=== PATIENT | female | born 2000 | race Caucasian/White ===

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

== ENCOUNTER 2024-12-01 15:42 | Inpatient (IN) ==
[2024-12-01 16:57] LABS: Hematocrit (blood only) 36.9 % (37.0-47.0); Hemoglobin 12.5 g/dl (12.0-16.0); Mean Corpuscular Hemoglobin 28.9 pg (25.0-34.0); Mean Corpuscular Hgb Conc 33.9 g/dL (32.0-36.0); Mean Corpuscular Volume 85.4 fL (80.0-100.0); Mean Platelet Volume 10.9 fL (9.4-12.4); Platelet Count 175 K/uL (130-400); RDW Coefficient of Variation 16.9 % (11.5-14.5); RDW Standard Deviation 52.6 fL (36.4-46.3); Red Blood Count 4.32 M/uL (4.20-5.40); White Blood Count 16.04 K/ul (4.8-10.8)
[2024-12-01] MEDS ORDERED: SODIUM CHLORIDE 0.9% 100 ML IV PRN (17:03)
[2024-12-01] MEDS ORDERED: SODIUM CHLORIDE 0.9% 50 ML IV PRN (17:03)
--- NOTE | 2024-12-01 17:28 | History & Physical Report ---
Date of Service December 01, 2024 Assessment & Plan (1) Encounter for supervision of normal intrauterine in multigravida, antepartum: Plan: Multiparous female who presents in early labor at 40 and 1/7 weeks. Membranes are intact. She would like to ambulate for now until contractions get stronger. She is hoping to have an unmedicated this time if possible. Epidural if she requests it. We will AROM when possible. Anticipate vaginal . Admission and Anticipated Discharge Date Admission Date: December 01, 2024 History of Present Illness Primary Care Provider: Misael Stark DO Patient is a 24-year-old 7 para 2-0-4-2 female EDC of 11/30/2024 who presents with leaking fluid shortly after her exam in the office this morning. Along with the increased discharge, she has had regular contractions which have been getting stronger over the last several hours. complicated by severe anemia requiring IV iron infusions and bipolar disorder. GBS is negative. testing has been reassuring. Allergies Allergy/AdvReac Type Severity Reaction Status Date / Time No Known Allergies Allergy Verified 12/01/24 11:36 Home Medications Medication Instructions Recorded Confirmed Type escitalopram oxalate 10 mg tablet 10 mg PO DAILY 04/07/24 12/01/24 History vit no.95-ferrous 1 tab PO DAILY 04/07/24 12/01/24 History fumarate 28 mg-folic acid 800 mcg tablet () Patient History Medical History Loss of teeth due to extraction POTS (postural orthostatic tachycardia syndrome) Varicella vaccination Intermittent palpitations SOB (shortness of breath) Ovarian cyst Gastritis Dentalgia Patella-femoral syndrome Muscle spasm Constipation Anxiety Migraine Surgical History [place] teeth removed History of removal of ovarian cyst Family History Father Heart disease Mother Thyroid disorder POTS (postural orthostatic tachycardia syndrome) Denies family history of Ovarian cancer Breast cancer Colorectal cancer Social History Smoking Status: Current every day smoker Tobacco Type: Cigarettes Cigarettes Per Day: up to 10 per day; Second Hand Exposure: Yes; Do You Dip or Chew Tobacco: No; Hx Alcohol Use: No Hx Substance Use: No Preferred Language: Angolan marital status: Single marital status details: Maik Lou (24) [phone] Current Living Situation: Family and Significant Other Current Living Situation Comment: Lives with FOB and 2 children- 1 service dog current occupational status: employed current occupation: Self employed/ Independent work How many Children do You have: 2 Feels Safe at Home: Yes Review of Systems All systems reviewed & are unremarkable except as noted in HPI & below Physical Exam Constitutional: WD/WN, vitals as above Psychiatric: A+Ox3, euthymic affect Genitourinary: OB Exam Abdomen: + vertex and + regular contractions (Q5 minutes) Manual OB Exam: + cervical dilation (5cm/60/-2 posterior) and + amniotic fluid (intact) No nitrazine positive or ferning present OB Exam Monitor Tracing: + external FHT monitor used, + external uterine monitor used, + category I and + normal FHT variability Results & Data Vital Signs (Past 12 Hours) Vital Signs Temp Pulse Resp BP 12/01/24 15:59 111 H 111/65 12/01/24 15:52 18 12/01/24 15:52 98.2 F 18 Coding Level of Care Code 87060 INT INP/OBS CARE 1/40MIN Diagnoses Encounter for supervision of normal intrauterine in multigravida, antepartum Z34.80
[2024-12-01] MEDS: ACETAMINOPHEN 500 MG TAB PO PRN (20:15)
[2024-12-01] MEDS ORDERED: fentaNYL citrate PF 100 MCG/2 ML VIAL EPI PRN (21:36)
[2024-12-01] MEDS ORDERED: ePHEDrine sulfate 50 MG/ML AMP IV PRN (21:36)
[2024-12-01] MEDS ORDERED: BUPIVACAINE 0.25% PF 30 ML VIAL EPI PRN (21:36)
[2024-12-01] MEDS ORDERED: SODIUM CHLORIDE 0.9% PF INJ 10 ML VIAL EPI PRN (21:36)
[2024-12-01] MEDS ORDERED: NALOXONE HCL 0.4 MG/1 ML VIAL/CARP IV PRN (21:36)
[2024-12-01] MEDS ORDERED: fentANYL 2 MCG/ML BUPIVacaine 0.125%-NSS 100ML BAG EPI PRN (21:36)
[2024-12-01] MEDS ORDERED: NALBUPHINE HCL INJ 10 MG/ML AMP IV PRN (21:36)
[2024-12-01] MEDS ORDERED: NALOXONE HCL 1 MG in SODIUM CHLORIDE 0.9% 1,000 ML IV PRN (21:36)
[2024-12-01] MEDS ORDERED: diphenhydrAMINE 50 MG/ML VIAL IV PRN (21:36)
[2024-12-01] MEDS ORDERED: LIDOCAINE 2% MPF LOCAL 5 ML VIAL EPI PRN (21:36)
[2024-12-01] MEDS ORDERED: ROPIVACAINE 0.5% PF 5 MG/ML 20 ML VIAL EPI PRN (21:36)
--- NOTE | 2024-12-01 21:36 | Anesthesiology Consultation ---
Date of Service December 01, 2024 Assessment & Plan Chart Review Chart Review: Acceptable Risk for Labor Epidural Consults Requested none History Height/Weight Height: 5 ft 3 in Weight: 97.522 kg Allergies Allergy/AdvReac Type Severity Reaction Status Date / Time No Known Allergies Allergy Verified 12/01/24 11:36 Medications Home Medications Medication Instructions Recorded Confirmed Last Taken escitalopram oxalate 10 mg tablet 10 mg PO DAILY 04/07/24 12/01/24 12/01/24 vit no.95-ferrous 1 tab PO DAILY 04/07/24 12/01/24 12/01/24 fumarate 28 mg-folic acid 800 mcg tablet () Active Medications Generic Name Dose Route Start Last Admin Trade Name Freq PRN Reason Stop Dose Admin Acetaminophen 1,000 mg 12/01/24 20:06 12/01/24 20:15 Acetaminophen 500 Mg Tab PO 12/31/24 20:05 1,000 mg Q8H PRN Administration Pain Past Medical History Medical History Loss of teeth due to extraction POTS (postural orthostatic tachycardia syndrome) Varicella vaccination Intermittent palpitations SOB (shortness of breath) Ovarian cyst Gastritis Dentalgia Patella-femoral syndrome Muscle spasm Constipation Anxiety Migraine Past Family History Family History (Updated 12/01/24 @ 17:41 by Shanel Damon RN) Father Heart disease [place] Mother POTS (postural orthostatic tachycardia syndrome) Thyroid disorder Denies family history of Ovarian cancer Breast cancer Colorectal cancer Past Surgical History Surgical History [place] teeth removed History of removal of ovarian cyst Social History Smoking Status: Current every day smoker tobacco type: cigarettes Smoking cigarettes per day: up to 10 per day Do You Dip or Chew Tobacco: No Hx Alcohol Use: No Hx Substance Use: No substance use type: does not use Physical Exam Vital Signs Last Vital Signs Temp 36.8 C 12/01/24 21:22 Pulse 92 H 12/01/24 19:40 Resp 18 12/01/24 21:22 BP 129/60 12/01/24 19:40 Testing Laboratory Results 12/01/24 16:40 Blood Type A Positive 12/01/24 16:40 Antibody Screen NEGATIVE 12/01/24 16:40
[2024-12-01] MEDS: OXYTOCIN 30 UNITS/NSS 30 UNITS/500 ML BAG IV PRN (22:39)
[2024-12-01] MEDS: LIDOCAINE 1% LOCAL 20 ML VIAL INFIL PRN (22:49)
[2024-12-01] MEDS: cefOXitin 2,000 MG in DEXTROSE 5 % MINI-B 50 ML IV STA (23:20)
--- NOTE | 2024-12-01 23:55 | Delivery Summary ---
Vaginal Delivery Summary Date of Service December 01, 2024 Vaginal Delivery Summary and 1st Degree LAC Patient is a 24-year-old 7 para 2-0-4-2 female who presents at 40 and 1 sevenths weeks in active labor. A 4 cm dilation her membranes were ruptured for clear fluid. She then progressed rapidly to anterior lip with the urge to push. She requested to have an unmedicated . The anterior lip was able to be reduced and she pushed effectively over intact perineum for delivery of a viable male . After the head was delivered, the rest of the delivered with maternal effort. After the shoulders delivered the rest the delivered with ease and was placed on the mother's abdomen for further attention and drying. He was vigorous crying and moving all 4 limbs. After 1 minute cord was clamped and cut. Cord blood was obtained. Placenta was then expressed intact with a three-vessel cord. bleeding was controlled with dilute Pitocin and fundal massage. First-degree perineal laceration was repaired with 3-0 chromic. A a large right vulvar hematoma developed almost immediately after . Despite direct pressure to the area it continued to enlarge to encompass the clitoral goodman and extended down to include the whole labia majora. There is no extension into the rectal vaginal septum. 1% lidocaine was used to anesthetize an area that was quite tense just inside the labia minora. A stab site was made and a moderate amount of blood was expressed with pressure against the lower vulvar hematoma. A aufiij-re-eulub stitch of 3-0 chromic was then made at the stab site bleeding deep encompassing what appeared to be the area of bleeding creating the palpable hematoma. This point the size of the hematoma was stable. Patient received 2 g of IV Mefoxin following the manipulation of the hematoma. QBL was 129 mL. Mother and were stable after delivery. [facility] [place] Vaginal Delivery Charge Delivery Type Details: and 1st Degree LAC
[2024-12-02] MEDS ORDERED: OXYTOCIN 30 UNITS/NSS 30 UNITS/500 ML BAG IV PRN (00:03)
[2024-12-02] MEDS ORDERED: oxyCODONE/ACETAMINOPHEN 5mg/325mg TAB PO PRN (00:03)
[2024-12-02] MEDS ORDERED: HYDROCORTISONE ACETATE 25 MG SUPP PR PRN (00:03)
[2024-12-02] MEDS ORDERED: bisacodyL 10 MG SUPP PR PRN (00:03)
[2024-12-02] MEDS: BUPIVACAINE 0.25% PF 30 ML VIAL ONE (00:17)
[2024-12-02] MEDS: SODIUM CHLORIDE 0.9% PF INJ 10 ML VIAL ONE (00:17)
[2024-12-02] MEDS: fentaNYL citrate PF 100 MCG/2 ML VIAL ONE (00:17)
[2024-12-02] MEDS: ePHEDrine sulfate 50 MG/ML AMP ONE (00:17)
[2024-12-02] MEDS: fentANYL 2 MCG/ML BUPIVacaine 0.125%-NSS 100ML BAG ONE (00:18)
[2024-12-02] MEDS: LIDOCAINE 2%/EPINEPHRINE 1:200,000 20 ML PF ONE (00:18)
[2024-12-02] MEDS: BENZOCAINE 20% SPRY 85 APPLN/85 GM CAN EXT PRN (00:26)
[2024-12-02] MEDS: IBUPROFEN 600 MG TAB PO PRN (00:26)
[2024-12-02] MEDS: DIPHTHER/TETAN/PERTUS Vaccine (Tdap, Adol/Adult) 0.5mL IM ONE (04:22)
[2024-12-02] MEDS: CALCIUM CARBONATE 500 MG CHEWABLE TAB PO PRN (05:23)
[2024-12-02] MEDS: fentaNYL citrate PF 100 MCG/2 ML VIAL EPI STA (05:29)
[2024-12-02] MEDS: BUPIVACAINE 0.25% PF 30 ML VIAL EPI STA (05:29)
[2024-12-02] MEDS: SODIUM CHLORIDE 0.9% PF INJ 10 ML VIAL EPI STA (05:30)
[2024-12-02] MEDS: LIDOCAINE 2%/EPINEPHRINE 1:200,000 20 ML PF EPI STA (05:30)
--- NOTE | 2024-12-02 06:55 | Hospitalist Progress Note ---
Date of Service December 02, 2024 Assessment & Plan (1) Encounter for assessment: Plan: Patient is PPD 1 s/p and doing well - Eating well, voiding well, ambulating well - vitals reviewed and within normal limits - pain well controlled with analgesics - OOB, ambulation, diet progression as tolerated - Blood type: A+, GBS neg, rubella immune - Plan to discharge tomorrow - After discharge, 6 week follow up with OBGYN Admission and Anticipated Discharge Date Admission Date: December 01, 2024 Subjective 24 yo post- day 1 s/p Ambulation: ambulating normally Voiding: no voiding problems Passing Gas:: Yes Diet Tolerance:: regular diet Lochia:: Small Feeding Type:: bottle feeding Current Pain Level: 6-7/10 Resting comfortably this AM in NAD. Denies HOROWITZ, CP, SOB, N/V/D, LE pain/swelling. Physical Exam 2 Physical Exam: General: patient resting comfortably, NAD, non-toxic in appearance, answers questions appropriately. Skin: warm, dry, intact HEENT: NC/AT, anicteric sclera, conjunctiva without injection, moist mucus membranes. Heart: +S1/S2, regular, no m/r/g Lungs: equal air entry bilaterally, no rales/rhonchi/wheezes Abd: +BS, soft, NT/ND, uterine fundus firm at umbilicus Ext: warm, no clubbing/cyanosis or edema, Donnie's neg. Neuro: nonfocal, speech intact, no facial droop, moving all extremities. Results & Data Results & Data Vital Signs (Past 12 Hours) Vital Signs Temp Pulse Pulse Resp BP BP Pulse Ox 12/02/24 02:30 37.1 C 88 18 102/63 95 12/02/24 01:25 96 H 108/56 L 12/02/24 01:20 18 12/02/24 01:10 90 111/55 L 12/02/24 00:55 88 117/56 L 12/02/24 00:50 18 12/02/24 00:40 86 114/56 L 12/02/24 00:25 88 111/59 L 12/02/24 00:10 77 109/56 L 12/02/24 00:05 18 12/01/24 23:55 95 H 12/01/24 23:55 106/53 L 12/01/24 23:50 18 12/01/24 23:41 83 12/01/24 23:41 108/53 L 12/01/24 23:35 18 12/01/24 23:23 75 12/01/24 23:23 92/53 L 12/01/24 23:20 36.7 C 18 12/01/24 21:22 18 12/01/24 21:22 36.8 C 18 12/01/24 19:55 18 12/01/24 19:55 37.0 C 18 12/01/24 19:40 92 H 12/01/24 19:40 129/60 12/01/24 19:30 37.0 C 18 O2 Del Method 12/02/24 02:30 Room Air 12/02/24 01:25 12/02/24 01:20 12/02/24 01:10 12/02/24 00:55 12/02/24 00:50 12/02/24 00:40 12/02/24 00:25 12/02/24 00:10 12/02/24 00:05 12/01/24 23:55 12/01/24 23:55 12/01/24 23:50 12/01/24 23:41 12/01/24 23:41 12/01/24 23:35 12/01/24 23:23 12/01/24 23:23 12/01/24 23:20 12/01/24 21:22 12/01/24 21:22 12/01/24 19:55 12/01/24 19:55 12/01/24 19:40 12/01/24 19:40 12/01/24 19:30 Resident Activity Tracking Resident Involvement: Resident Care Provided Care Provided: Adult Hospital Medicine
--- NOTE | 2024-12-02 07:51 | Obstetrical Progress Note ---
Date of Service December 02, 2024 Assessment & Plan (1) Encounter for assessment: Plan: Patient is PPD 1 s/p and doing well - Eating well, voiding well, ambulating well - vitals reviewed and within normal limits - pain well controlled with analgesics - OOB, ambulation, diet progression as tolerated - Blood type: A+, GBS neg, rubella equivocal - Plan to discharge tomorrow - After discharge, 6 week follow up with OBGYN Admission and Anticipated Discharge Date Admission Date: December 01, 2024 Supervising Physician Co-Signing Physician Notes Resident Physician Supervision Note: I interviewed and examined the patient. Discussed with Dr. Merino and agree with findings and plan as documented in the note. Any exceptions or clarifications are listed here: Right vulvar hematoma stable but tender. Exam done with Dr. Metz who is instructional design specialist this weekend. will continue comfort measures with ice diaper and pain meds. Documented By: Beverly Scott MD, FACOG Subjective 24 yo post- day 1 s/p Ambulation: ambulating normally Voiding: no voiding problems Passing Gas:: Yes Diet Tolerance:: regular diet Lochia:: Small Feeding Type:: breast feeding Current Pain Level: 6/10 Resting comfortably this AM in NAD. Denies HOROWITZ, CP, SOB, N/V/D, LE pain/swelling. Physical Exam Physical Exam: General: patient resting comfortably, NAD, non-toxic in appearance, answers questions appropriately. Skin: warm, dry, intact HEENT: NC/AT, anicteric sclera, conjunctiva without injection, moist mucus membranes. Heart: +S1/S2, regular, no m/r/g Lungs: equal air entry bilaterally, no rales/rhonchi/wheezes Abd: +BS, soft, NT/ND, uterine fundus firm at umbilicus Ext: warm, no clubbing/cyanosis or edema, Donnie's neg. Neuro: nonfocal, speech intact, no facial droop, moving all extremities. Results & Data Vital Signs (Past 12 Hours) Vital Signs Temp Pulse Pulse Resp BP BP Pulse Ox 12/02/24 02:30 37.1 C 88 18 102/63 95 12/02/24 01:25 96 H 108/56 L 12/02/24 01:20 18 12/02/24 01:10 90 111/55 L 12/02/24 00:55 88 117/56 L 12/02/24 00:50 18 12/02/24 00:40 86 114/56 L 12/02/24 00:25 88 111/59 L 12/02/24 00:10 77 109/56 L 12/02/24 00:05 18 12/01/24 23:55 95 H 12/01/24 23:55 106/53 L 12/01/24 23:50 18 12/01/24 23:41 83 12/01/24 23:41 108/53 L 12/01/24 23:35 18 12/01/24 23:23 75 12/01/24 23:23 92/53 L 12/01/24 23:20 36.7 C 18 12/01/24 21:22 18 12/01/24 21:22 36.8 C 18 12/01/24 19:55 18 12/01/24 19:55 37.0 C 18 12/01/24 19:40 92 H 12/01/24 19:40 129/60 12/01/24 19:30 37.0 C 18 O2 Del Method 12/02/24 02:30 Room Air 12/02/24 01:25 12/02/24 01:20 12/02/24 01:10 12/02/24 00:55 12/02/24 00:50 12/02/24 00:40 12/02/24 00:25 12/02/24 00:10 12/02/24 00:05 12/01/24 23:55 12/01/24 23:55 12/01/24 23:50 12/01/24 23:41 12/01/24 23:41 12/01/24 23:35 12/01/24 23:23 12/01/24 23:23 12/01/24 23:20 12/01/24 21:22 12/01/24 21:22 12/01/24 19:55 12/01/24 19:55 12/01/24 19:40 12/01/24 19:40 12/01/24 19:30 Resident Activity Tracking Resident Involvement: Resident Care Provided Care Provided: OB Delivery
[2024-12-02] MEDS: ACETAMINOPHEN 325 MG TAB PO PRN (08:06)
[2024-12-02] MEDS: PRENATAL VITAMIN 1 TAB PO SCH (08:06)
[2024-12-02] MEDS: DOCUSATE SODIUM 100 MG CAP PO SCH (08:06)
[2024-12-02] MEDS: ESCITALOPRAM OXALATE 10 MG TAB PO SCH (08:07)
[2024-12-02 19:42] VITALS: RESP 16
[2024-12-03] MEDS: ACETAMINOPHEN 325 MG TAB PO PRN (04:30)
[2024-12-03 06:44] LABS: Hematocrit (blood only) 32.1 % (37.0-47.0); Hemoglobin 10.5 g/dl (12.0-16.0); Mean Corpuscular Hemoglobin 28.5 pg (25.0-34.0); Mean Corpuscular Hgb Conc 32.7 g/dL (32.0-36.0); Mean Platelet Volume 10.7 fL (9.4-12.4); Platelet Count 153 K/uL (130-400); RDW Coefficient of Variation 17.2 % (11.5-14.5); RDW Standard Deviation 54.4 fL (36.4-46.3); Red Blood Count 3.69 M/uL (4.20-5.40); White Blood Count 13.28 K/ul (4.8-10.8)
--- NOTE | 2024-12-03 07:58 | Obstetrical Progress Note ---
Date of Service December 03, 2024 Assessment & Plan (1) Encounter for assessment: Plan: Patient is PPD 1 s/p and doing well - Eating well, voiding well, ambulating well - vitals reviewed and within normal limits - pain well controlled with analgesics - OOB, ambulation, diet progression as tolerated - Blood type: A+, GBS neg, rubella equivocal - Plan to discharge tomorrow - After discharge, 6 week follow up with OBGYN Admission and Anticipated Discharge Date Admission Date: December 01, 2024 Supervising Physician Co-Signing Physician Notes Resident Physician Supervision Note: I was present with Dr. Merino during the history and exam. I discussed the case with the resident and agree with the findings and plan as documented in the note. Any exceptions or clarifications are listed here: [None] Documented By: Dean Carrillo MD, FACOG Subjective 24 yo post- day 2 s/p Ambulation: ambulating normally Voiding: no voiding problems Passing Gas:: Yes Diet Tolerance:: regular diet Lochia:: Small Feeding Type:: breast feeding Current Pain Level: 5/10 Resting comfortably this AM in NAD. Denies HOROWITZ, CP, SOB, N/V/D, LE pain/swelling. Physical Exam Physical Exam: General: patient resting comfortably, NAD, non-toxic in appearance, answers questions appropriately. Skin: warm, dry, intact HEENT: NC/AT, anicteric sclera, conjunctiva without injection, moist mucus membranes. Heart: +S1/S2, regular, no m/r/g Lungs: equal air entry bilaterally, no rales/rhonchi/wheezes Abd: +BS, soft, NT/ND, uterine fundus firm at umbilicus Ext: warm, no clubbing/cyanosis or edema, Donnie's neg. Neuro: nonfocal, speech intact, no facial droop, moving all extremities. Genitourinary: R. vulvar hematoma present, tender but improving; not formally assessed today Results & Data Vital Signs (Past 12 Hours) Vital Signs Temp Pulse Resp BP Pulse Ox O2 Del Method 12/03/24 04:00 36.8 C 81 16 110/71 98 Room Air 12/02/24 22:53 36.5 C 79 16 107/65 98 Room Air Resident Activity Tracking Resident Involvement: Resident Care Provided Care Provided: OB Delivery
[2024-12-03 10:15] VITALS: BP 98/61; TEMP 98.4; O2SAT 97
[2024-12-03 12:51] VITALS: PULSE 81
[2024-12-03] MEDS ORDERED: bisacodyL 5 MG TABEC PO SCH (20:00)
== END 2024-12-03 13:12 | disposition home or self-care (01) | DRG 807 ==
LOC: OPB 15:42 → 4S1 15:43 → 4E2 12-02 02:16